=== PATIENT | male | born 1940 | race Caucasian/White ===

== ENCOUNTER 2017-02-05 20:30 | Emergency (ER) | payer OTHER, MEDICARE ==
[2017-02-05] MEDS ORDERED: Ondansetron 4 MG Tab.DIS PO ONE (21:55)
[2017-02-05] MEDS ORDERED: Acetaminophen 325 MG Tab PO ONE ×2 (22:05→22:06)
[2017-02-05] MEDS ORDERED: Acetaminophen 500 MG Tab PO ONE (22:06)
--- NOTE | 2017-02-05 23:29 | ER ---
HISTORY OF PRESENT ILLNESS: A 76-year-old male who comes in by ambulance. [place]. He states he had had four beers when the bar stool swiveled and the patient slipped off it falling to the floor. He states he injured his hip and he thinks it is broken. The patient denies any other injuries. He denies any problems with abdominal pain, head injury, neck pain, shortness of breath, or coughing. The patient is pointing to the greater trochanter area when describing the area of pain. He states that his foot was facing outward and he is quite sure he broke his hip. 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 CURRENT MEDICATIONS: A baby aspirin once a day, and he has been taking Mucinex lately. ALLERGIES: NONE. OBJECTIVE: GENERAL APPEARANCE: The patient is awake and alert. He is pleasant and talkative. VITAL SIGNS: Reviewed. He is afebrile. Pulse is 74, blood pressure 118/50, and O2 sats 94% on room air. MUSCULOSKELETAL: Examining the patient's right hip reveals skin is intact. There is no bruising or discoloration. He does have tenderness directly over the greater trochanter area only with palpation. There is no pain with palpation of the inguinal area or of the low back. At this point, in the exam, the patient became nauseated and vomited one time. LAB AND X-RAY: X-ray of the hip was obtained and there is a fracture of the femoral neck with minimal displacement. Labs include a CBC showing a white count of 14,000. Hemoglobin is good at 14.2. Other labs drawn include a CMP, EtOH, and UA; they are pending at this time. DIAGNOSIS: Right hip fracture. TREATMENT PLAN: The patient will be transferred to [place]. I spoke with Dr. Castrejon, orthopedist at [facility] in [place], who accepted the patient. He will be transferred by ground ambulance. The patient did vomit one more time in the emergency room, he was given Zofran 8 mg sublingual, and he was given Tylenol 1000 mg p.o. for pain; he refused to take anything stronger. The patient left our facility stating that his pain was very tolerable and he was not nauseated at all. CRS/MODL /[id number] MTDD
--- NOTE | 2017-02-06 10:48 | CR ---
DATE OF SERVICE: 02/05/17 CLINICAL DATA: hip injury - fall. PELVIS AND RIGHT HIP: No priors. There is diffuse osteopenia. There is a mildly displaced oblique fracture through the femoral neck on the right. No other acute abnormalities. IMPRESSION: Right hip fracture. [id number] [facility]
== END 2017-02-05 22:25 ==
LOC: LB.ED 20:30
DX: S72.001A Fracture of unspecified part of neck of right femur, initial encounter for closed fracture (principal); W17.89XA Other fall from one level to another, initial encounter
CPT/HCPCS: 36415; 73502; 80053; 85025; 99284; A0425; A0429; A9270; G0480